=== PATIENT | male | born 2000 | race Two or more races ===

== ENCOUNTER 2024-06-17 02:40 | Emergency (ER) | payer OTHER ==
[~2024-06-17] VITALS: Ht 180.3 cm; Wt 79.3 kg
[2024-06-17 03:04] VITALS: BP 116/78; PULSE 57; RESP 16; TEMP 97.6; O2SAT 97
[2024-06-17] MEDS ORDERED: AUG875T PO (03:14)
[2024-06-17] MEDS ORDERED: NAP500T PO (03:14)
[2024-06-17] MEDS ORDERED: HUR60 MT (03:14)
[2024-06-17] MEDS: KETOROLAC TROMETH 60MG/2ML VIAL IM ONE (03:16)
== END 2024-06-17 03:23 | disposition home or self-care (01) ==
LOC: ER 02:40
DX: K02.9 Dental caries, unspecified (principal)
CPT/HCPCS: J1885

== ENCOUNTER 2024-12-01 04:35 | Emergency (ER) | payer OTHER ==
[~2024-12-01] VITALS: Ht 180.3 cm; Wt 81.2 kg
[~2024-12-01 04:35] MED LIST: AUG875T PO; HUR60 MT; NAP500T PO
[2024-12-01 05:07] VITALS: BP 106/71; PULSE 60; RESP 18; TEMP 98.5; O2SAT 98
--- NOTE | 2024-12-01 05:25 | ED.PDOC ---
Eye-HPI HPI Comments PATIENT COMES WITH C/C OF BILATERAL EARACHES WITH DRAINAGE X4 DAYS. PATIENT REPORTS SOME DIZZINESS WITH THE EARACHES. DENIES HEARING CHANGES FEVER, CHILLS, NAUSEA, VOMITING. SHORTNESS BREATH CHEST PAIN OR DIFFICULTY BREATHING Chief Complaint: Earache Time Seen by MD: 04:41 Primary Care Provider: UNKOWN Reviewed Notes: Nurses Notes, Medications, Allergies Allergies: Coded Allergies: NO KNOWN ALLERGIES (Unverified , 06/17/24) Home Meds Active Scripts Benzocaine (Dental) (HURRICAINE SPRAY) 1 Spr Sp, 1 SPR MT 6XD for 4 Days, #1 SPRAY Prov:ELEAZARELAYNE [facility] 06/17/24 Naproxen (NAPROSYN TABLET) 500 Mg Tb, 1 TAB PO BID for 7 Days, #14 TAB Prov:ELAYNE BUSH [facility] 06/17/24 Amoxicillin & Pot Clavulanate (AUGMENTIN TABLET) 875 Mg Tb, 875 MG PO BID for 7 Days, #14 TAB Prov:ELEAZARELAYNE Lockhart [facility] 06/17/24 Information Source: Patient Mode of Arrival: Ambulatory Past Medical History PAST MEDICAL HISTORY: Denies Surgical History: Denies all surgeries Family History Family History: Reviewed,noncontributory to illness Social History Smoker: Non-Smoker Alcohol: Denies ETOH Use Drugs: Denies Drug Use Constitutional: denies: chills, diaphoresis, fatigue, fever, malaise, sweats, weakness, others EENTM: reports: ear drainage, ear pain, nasal discharge, throat pain; denies: blurred vision, double vision, ear bleeding, ear discharge, ear ringing, eye pa in, eye redness, hearing loss, mouth pain, mouth swelling, nose bleeding, nose congestion, nose pain, photophobia, tearing, throat swelling, voice changes, others Respiratory: denies: cough, hemoptysis, orthopnea, SOB at rest, shortness of breath, SOB with excertion, stridor, wheezing, others Cardiovascular: denies: chest pain, dizzy spells, diaphoresis, Dyspnea on exertion, edema, irregular heart beat, left arm pain, lightheadedness, palpitations, PND, syncope, others Gastrointestinal: denies: abdomen distended, abdominal pain, blood streaked bowels, constipated, diarrhea, dysphagia, difficulty swallowing, hematemesis, melena, nausea, poor appetite, poor fluid intake, rectal bleeding, rectal pain, vomiting, others Genitourinary: denies: burning, dysuria, flank pain, frequency, hematuria, incontinence, penile discharge, penile sore, pain, testicle pain, testicle swelling, urgency, others Neurological: denies: dizziness, fainting, headache, left sided numbness, left sided weakness, numbness, paresthesia, pre-existing deficit, right sided numbness, right sided weakness, seizure, speech problems, tingling, tremors, weakness, others Musculoskeletal: denies: back pain, gout, joint pain, joint swelling, muscle pain, muscle stiffness, neck pain, others Integumetry: denies: bruises, change in color, change in hair/nails, dryness, laceration, lesions, lumps, rash, wounds, others Allergic/Immunocompromised: denies: Difficulty Healing, Frequent Infections, Hives, Itching, others Hematologic/Lymphatic: denies: anemia, blood clots, easy bleeding, easy bruising, swollen glands, others Endocrine: denies: excessive hunger, excessive sweating, excessive thirst, excessive urination, flushing, intolerance to cold, intolerance to heat, unexplained weight gain, unexplained weight loss, others Psychiatric: denies: anxiety, bipolar disorder, depression, hopeless, panic disorder, schizophrenia, sleepless, suicidal, others Physical Exam General Appearance: No Apparent Distress, Normal HEENT: Pharyngeal Erythema, TMs Normal, Other (INNER EAR FLUID BILATERAL EARS WITH AIR BUBBLES. TRACE ERYTHEMA TM WITH MILD BULGING DRAINAGE OR PERFORATED TM BILATERAL) Neck: Full Range of Motion, Non-Tender, Normal, Normal Inspection Respiratory: Chest Non-Tender, Lungs Clear, No Accessory Muscle Use, No Respiratory Distress, Normal Breath Sounds Cardiovascular: No Edema, No JVD, No Murmur, No Gallop, Normal Peripheral Pulses, Regular Rate/Rhythm Breast Exam: Deferred Gastrointestinal: No Organomegaly, Non Tender, No Pulsatile Mass, Normal Bowel Sounds, Soft Genitalia: Deferred Pelvic: Deferred Rectal: Deferred Extremities: Normal capillary refill, Normal inspection, Normal range of motion, Non-tender, No pedal edema Musculoskeletal : Apperance: Normal Neurologic: Alert, education department chair II-XII nml as Tested, No Motor Deficits, Normal Affect, Normal Mood, No Sensory Deficits Cerebellar Function: Normal Reflexes: Normal Skin: Dry, Normal Color, Warm Lymphatic: No Adenopathy Was a procedure done? Was a procedure done?: No EENT DIFF Eye: N/A Ear: Cerumen Impaction, Foreign Body, Otitis Externa, Barotrauma, Otitis Media, Perforation, Pharyngitis, Sinusitis X-Ray, Labs, Meds, VS Vital Signs Date Time Temp Pulse Resp B/P (MAP) Pulse Ox O2 Delivery O2 Flow Rate FiO2 12/01/24 05:07 98.5 60 18 106/71 (83) 98 98.5 12/01/24 05:07 60 18 98 Room Air 12/01/24 04:57 98.5 60 18 106/71 (83) 98 X-Ray, Labs, Meds, VS Comment LIKELY BACTERIAL. SCRIPT AUGMENTIN AND MEDROL DOSEPAK REST INCREASE P.O. FLUIDS WITH ELECTROLYTES. THE COUNTER TYLENOL OR MOTRIN NEEDED FOR THE PAIN AND FEVER FOLLOW UP WITH YOUR PCP IN 1-2 DAYS. MEDICATIONS PRESCRIBED SIDE EFFECTS DISCUSSED. ADVISED NO DRIVING WHILE WITH ANY VERTIGO. ER RETURN PRECAUTIONS GIVEN PATIENT INDICATES UNDERSTANDING AGREES WITH DISCHARGE PLAN OF CARE Time of 1ST Reevaluation: 05: Reevaluation 1ST: Improved Patient Education/Counseling: Diagnosis, Treatment, Prognosis, Need For Follow Up Family Education/Counseling: No Family Present Departure 1 Departure Time of Disposition: :29 Impression: Primary Impression: URI (upper respiratory infection) Qualified Codes: J06.9 - Acute upper respiratory infection, unspecified Disposition: HOME / SELF CARE / HOMELESS Condition: Stable e-Prescriptions Methylprednisolone (Medrol Dosepak) 4 Mg Cale 4 MG PO UD for 6 Days, #21 TAB UAD Prov: ELAYNE BUSH 12/01/24 Amoxicillin & Pot Clavulanate (AUGMENTIN TABLET) 875 Mg Tb 875 MG PO BID for 7 Days, #14 TAB Prov: ELAYNE BUSH 12/01/24 Discharged With: Self Critical Care Note Critical Care Time?: No Stability Stability form required: ELAYNE Collier Dec 01, 2024 05:25
[2024-12-01] MEDS ORDERED: METH4PAK PO (05:31)
== END 2024-12-01 05:41 | disposition home or self-care (01) ==
LOC: ER 04:35
DX: J06.9 Acute upper respiratory infection, unspecified (principal); R42 Dizziness and giddiness; H92.03 Otalgia, bilateral